=== PATIENT | male | born 1960 | race Caucasian/White ===

== ENCOUNTER 2020-03-20 21:27 | Emergency (ER) | payer BC ==
[~2020-03-20] VITALS: Ht 167.6 cm; Wt 91.9 kg
[2020-03-20] MEDS ORDERED: IV NORMAL SALINE 1,000ML 1,000 ML IV SCH (22:15)
[2020-03-20] MEDS ORDERED: DEXAMETHASONE SOD PHOS 10 MG/ML VIAL. IV ONE (22:45)
[2020-03-20] MEDS ORDERED: ORPHENADRINE CITRATE 60 MG/2 ML VIAL. IV ONE (22:45)
[2020-03-20] MEDS ORDERED: KETOROLAC 30 MG/ML VIAL. IVP ONE (22:45)
--- NOTE | 2020-03-20 22:48 | RAD ---
PORTABLE CHEST 1V History: Shortness of breath Comparison: None. Findings: No consolidation or pleural effusion. Normal heart size. No pneumothorax. Postop changes lower cervical spine. Impression: 1. No acute cardiopulmonary process. Electronically signed by: Travon Bobo DO (03/20/2020 10:45 PM) [facility]
[2020-03-20 23:12] LABS: BASO % 0 % (0-3); EOS % 0 % (0-3); HEMATOCRIT 41.7 % (39.0-53.0); HEMOGLOBIN 14.1 g/dL (13.0-17.5); LYMPH # 2.2 x10^3/uL (1.0-4.8); LYMPH % 21 % (24-48); MEAN CORPUSCULAR HEMOGLOBIN 31 pg (25-35); MEAN CORPUSCULAR HGB CONC 34 g/dL (31-37); MEAN CORPUSCULAR VOLUME 93 fL (79-100); MONO # 0.9 x10^3/uL (0.0-1.1); MONO % 8 % (0-9); NEUT # 7.7 x10^3uL (1.8-7.7); NEUT % 71 % (31-73); PLATELET COUNT 281 x10^3/uL (140-400); RED CELL DISTRIBUTION WIDTH 13.6 % (11.5-14.5); WHITE BLOOD COUNT 10.8 x10^3/uL (4.0-11.0)
[2020-03-20 23:19] LABS: CREATININE 0.8 mg/dL (0.7-1.3); GFR 98.3; POTASSIUM 3.4 mmol/L (3.5-5.1)
[2020-03-20 23:25] LABS: ALBUMIN 4.2 g/dL (3.4-5.0); ALBUMIN/GLOBULIN RATIO 1.4 (1.0-1.7); TOTAL BILIRUBIN 1.2 mg/dL (0.2-1.0); TOTAL PROTEIN 7.2 g/dL (6.4-8.2)
[2020-03-20] MEDS ORDERED: HYDR-3165 PO (23:48)
[2020-03-20] MEDS ORDERED: ORPH-16 PO (23:48)
--- NOTE | 2020-03-20 23:49 | PHYS DOC ---
Past History Past Medical History: High Cholesterol, Hypertension, Hypothyroid Past Surgical History: Other Additional Past Surgical Histo: CERVICAL FUSION Additional Smoking Information: CIGARS Alcohol Use: Heavy General Adult EDM: Chief Complaint: SHORTNESS OF BREATH HPI: HPI: Patient is a 59-year-old male who presents with complaint of shortness of breath that started tonight. Patient also indicates that he has chronic neck pain and is scheduled for a myelogram in 2 days. Patient states that he has been drinking alcohol to treat his pain. He also indicates that he had taken his blood pressure at home and it had been fairly elevated with diastolic of 130. Patient denies any chest pain. He does indicate the shortness of breath is worsened with exertion. He denies any nausea, vomiting or diarrhea. He also denies any cough. Patient rates pain in his neck at an 8 out of 10. [] Review of Systems: Review of Systems: Constitutional: Denies fever or chills Respiratory: Complains of shortness of breath Cardiovascular: Denies chest pain or edema GI: Denies abdominal pain, nausea, vomiting, bloody stools or diarrhea Musculoskeletal: Complains of neck pain Integument: Denies rash Neurologic: Denies headache, focal weakness or sensory changes A full 10 point review of systems has been reviewed and is otherwise negative. Heart Score: Risk Factors: Risk Factors: DM, Current or recent (<one month) smoker, HTN, HLP, family history of CAD, obesity. Risk Scores: Score 0 - 3: 2.5% MACE over next 6 weeks - Discharge Home Score 4 - 6: 20.3% MACE over next 6 weeks - Admit for Clinical Observation Score 7 - 10: 72.7% MACE over next 6 weeks - Early Invasive Strategies Current Medications: Current Meds: Current Medications Medications (Trade) Dose Ordered Sig/[place] Start Time Stop Time Status Last Admin Dose Admin Dexamethasone Sodium Phosphate (Decadron) 10 mg 1X ONCE 03/20/20 22:45 03/20/20 22:57 DC Ketorolac Tromethamine (Toradol 30mg Vial) 30 mg 1X ONCE 03/20/20 22:45 03/20/20 22:57 DC Orphenadrine Citrate (Norflex) 60 mg 1X ONCE 03/20/20 22:45 03/20/20 22:57 DC Sodium Chloride 1,000 ml @ 1,000 mls/hr Q1H 03/20/20 22:15 03/20/20 23:14 DC 03/20/20 22:42 1,000 MLS/HR Allergies: Allergies: Allergies Coded Allergies Type Severity Reaction Last Updated Verified terbinafine Allergy Unknown 03/20/20 Yes Physical Exam: PE: Constitutional: Well developed, well nourished, no acute distress, non-toxic appearance. [] HENT: Normocephalic, atraumatic, bilateral external ears normal, oropharynx moist, no oral exudates, nose normal. [] Eyes: PERRLA, EOMI, conjunctiva normal, no discharge. [] Neck: Normal range of motion, no tenderness, supple. [] Cardiovascular: Tachycardic rate with regular rhythm [] Lungs & Thorax: Bilateral breath sounds clear to auscultation [] Abdomen: Bowel sounds normal, soft, no tenderness. [] Skin: Warm, dry, no erythema, no rash. [] Extremities: No tenderness, no cyanosis, no clubbing, ROM intact, no edema. [] Neurologic: Alert and oriented X 3, no focal deficits noted. [] Current Patient Data: Labs: Laboratory Tests Test 03/20/20 22:30 White Blood Count 10.8 x10^3/uL (4.0-11.0) Red Blood Count 4.50 x10^6/uL (4.30-5.70) Hemoglobin 14.1 g/dL (13.0-17.5) Hematocrit 41.7 % (39.0-53.0) Mean Corpuscular Volume 93 fL (79-100) Mean Corpuscular Hemoglobin 31 pg (25-35) Mean Corpuscular Hemoglobin Concent 34 g/dL (31-37) Red Cell Distribution Width 13.6 % (11.5-14.5) Platelet Count 281 x10^3/uL (140-400) Neutrophils (%) (Auto) 71 % (31-73) Lymphocytes (%) (Auto) 21 % (24-48) L Monocytes (%) (Auto) 8 % (0-9) Eosinophils (%) (Auto) 0 % (0-3) Basophils (%) (Auto) 0 % (0-3) Neutrophils # (Auto) 7.7 x10^3uL (1.8-7.7) Lymphocytes # (Auto) 2.2 x10^3/uL (1.0-4.8) Monocytes # (Auto) 0.9 x10^3/uL (0.0-1.1) Eosinophils # (Auto) 0.0 x10^3/uL (0.0-0.7) Basophils # (Auto) 0.0 x10^3/uL (0.0-0.2) D-Dimer (Sarah) 0.30 mg/L (0.00-0.50) Sodium Level 133 mmol/L (136-145) L Potassium Level 3.4 mmol/L (3.5-5.1) L Chloride Level 93 mmol/L (98-107) L Carbon Dioxide Level 26 mmol/L (21-32) Anion Gap 14 (6-14) Blood Urea Nitrogen 10 mg/dL (8-26) Creatinine 0.8 mg/dL (0.7-1.3) Estimated GFR (Cockcroft-Gault) 98.3 BUN/Creatinine Ratio 13 (6-20) Glucose Level 108 mg/dL (70-99) H Calcium Level 9.0 mg/dL (8.5-10.1) Total Bilirubin 1.2 mg/dL (0.2-1.0) H Aspartate Amino Transferase (AST) 48 U/L (15-37) H Alanine Aminotransferase (ALT) 71 U/L (16-63) H Alkaline Phosphatase 79 U/L (46-116) Troponin I Quantitative < 0.017 ng/mL (0-0.055) Total Protein 7.2 g/dL (6.4-8.2) Albumin 4.2 g/dL (3.4-5.0) Albumin/Globulin Ratio 1.4 (1.0-1.7) Vital Signs: Vital Signs Date Time Temp Pulse Resp B/P (MAP) Pulse Ox O2 Delivery O2 Flow Rate FiO2 03/20/20 21:45 98.8 128 20 156/102 (120) 97 Room Air EKG: EKG: [] Radiology/Procedures: Radiology/Procedures: [] Impressions: PROCEDURE: PORTABLE CHEST 1V PORTABLE CHEST 1V History: Shortness of breath Comparison: None. Findings: No consolidation or pleural effusion. Normal heart size. No pneumothorax. Postop changes lower cervical spine. Impression: 1. No acute cardiopulmonary process. Electronically signed by: Travon Bobo DO (03/20/2020 10:45 PM) [facility] Course & Med Decision Making: Course & Med Decision Making Pertinent Labs and Imaging studies reviewed. (See chart for details) [] Caitlynon Disclaimer: Elliot Disclaimer: This electronic medical record was generated, in whole or in part, using a voice recognition dictation system. Departure Departure: Impression: Primary Impression: Shortness of breath Additional Impression: Neck pain Disposition: HOME/RESIDENCE PRIOR TO ADM Condition: STABLE Referrals: KETTY GONZALEZ MD (PCP) Patient Instructions: Cervical Radiculopathy, Musculoskeletal Pain, Shortness of Breath Scripts Orphenadrine Citrate (ORPHENADRINE CITRATE) 100 Mg Tablet.er 1 TAB PO BID PRN for MUSCLE SPASMS for 10 Days, #20 TAB Prov: JUAN CARLOS LUCIO Jr., DO 03/20/20 Hydrocodone Bit/Acetaminophen (NORCO 5-325 TABLET) 1 Each Tablet 1-2 TAB PO PRN Q6HRS PRN for PAIN, #20 TAB 0 Refills Prov: JUAN CARLOS LUCIO Jr., DO 03/20/20 JUAN CARLOS LUCIO Jr., DO March 20, 2020 23:49
[2020-03-21] MEDS ORDERED: ZOLP10TA PO (00:17)
[2020-03-21 00:38] VITALS: BP 147/98
--- NOTE | 2020-03-21 16:14 | EKG ---
[address] [address] Test Date: 2020-03-20 Test Time: 21:57:38 Pat Name: RHETT ANNA Department: Room: Gender: M [employer]: : 1960 Requested By: JUAN CARLOS LUCIO Order Number: [id number] Reading MD: Nakul Christian Measurements Intervals [place] Rate: 120 P: 24 FL: 150 QRS: 3 QRSD: 90 T: 21 QT: 310 QTc: 443 Interpretive Statements SINUS TACHYCARDIA QRS(T) CONTOUR ABNORMALITY CONSIDER INFERIOR INFARCT POSSIBLY ABNORMAL ECG RI6.02 No previous ECG available for comparison Electronically Signed On 03-22-2020 7:58:08 CDT by Nakul Christian
== END 2020-03-21 00:45 | disposition home or self-care (01) ==
LOC: ER 21:27
DX: R06.02 Shortness of breath (principal); M54.2 Cervicalgia; G89.29 Other chronic pain; E78.00 Pure hypercholesterolemia, unspecified; I10 Essential (primary) hypertension; E03.9 Hypothyroidism, unspecified; Z88.8 Allergy status to other drugs, medicaments and biological substances
CPT/HCPCS: 36415; 71045; 80053; 84484; 85025; 85379; 93005; 96374; 96375; 99285; G0480; J1100; J1885; J2360; J7030

== ENCOUNTER → 2020-12-12 | Outpatient (CLI) | payer BC ==
[~2020-12-12] MED LIST: HYDR-3165 PO; ORPH-16 PO; ZOLP10TA PO
--- NOTE | 2020-12-12 16:43 | RAD ---
EXAM: Cervical spine, 3 views. HISTORY: Pain. COMPARISON: None. FINDINGS: 3 views of the cervical spine are obtained. There is instrumented anterior spinal fusion an d interbody fusion at C5-C7. There is interbody fusion at C4-C5. There is instrumented posterior fusi on at C3-C6. There is no evidence of instrumentation loosening. There is multilevel endplate remodeli ng. There is disc space narrowing at C3-C4. There is multilevel facet arthropathy. IMPRESSION: 1. Instrumented anterior and posterior fusion, described above. 2. Multilevel degenerative change, described above. 3. No acute osseous finding. Electronically signed by: Shyann Hernandez MD (12/12/2020 4:40 PM) [id number]
== END ==
LOC: RAD 15:01
PROVIDERS: ATTEND Neurological Surgery
DX: M47.812 Spondylosis without myelopathy or radiculopathy, cervical region (principal); M43.22 Fusion of spine, cervical region; M48.02 Spinal stenosis, cervical region; Z98.1 Arthrodesis status
CPT/HCPCS: 72040